=== PATIENT | female | born 1930 | race Caucasian/White ===

== ENCOUNTER 2017-11-24 15:21 | Emergency (ER) | payer MEDICARE ==
--- NOTE | 2017-11-24 16:04 | RAD ---
AP PELVIS: HISTORY: Fall, left hip pain. FINDINGS/IMPRESSION: A left femoral head prosthesis is present. No dislocation is identified. The periprosthetic fractur e of the left proximal femur is seen on the left hip radiographs. POS: [facility]
--- NOTE | 2017-11-24 16:11 | RAD ---
LEFT HIP 2 VIEWS: HISTORY: Fall, left hip pain. FINDINGS/IMPRESSION: There are postop changes of left femoral head prosthesis in good position and alignment. There is a mildly displaced periprosthetic fracture involving the lateral aspect of the proximal femur. POS: [facility]
== END 2017-11-24 18:10 | disposition home or self-care (01) ==
LOC: ERS 15:21
DX: S72.002A Fracture of unspecified part of neck of left femur, initial encounter for closed fracture (principal); I10 Essential (primary) hypertension; F41.9 Anxiety disorder, unspecified; W19.XXXA Unspecified fall, initial encounter
CPT/HCPCS: 72170